=== PATIENT | male | born 1975 | race Caucasian/White ===

== ENCOUNTER 2022-06-04 09:57 | Emergency (ER) | payer OTHER ==
[~2022-06-04] VITALS: Ht 167.6 cm; Wt 81.6 kg
[2022-06-04 10:10] VITALS: BP 126/85
[2022-06-04] MEDS ORDERED: KETOROLAC TROMETHAMINE INJ 30 MG/ML VIAL ONE (10:27)
[2022-06-04] MEDS ORDERED: KETOROLAC TROMETHAMINE INJ 30 MG/ML VIAL IM ONE (10:30)
--- NOTE | 2022-06-04 11:34 | NUR ---
seen and evaluated by [employer] law. medicated as ordered. -covid antigen test. medically cleared. d/c in to [employer] officer in stable condition.
== END 2022-06-04 11:35 ==
LOC: ER 10:15
DX: R51.9 Headache, unspecified (principal); R05.9 Cough, unspecified; Z20.822 Contact with and (suspected) exposure to COVID-19
CPT/HCPCS: 99283; 87426; 96372; J1885; C9803